=== PATIENT | female | born 1990 | race Caucasian/White ===

== ENCOUNTER 2018-03-26 18:16 | Emergency (ER) | payer SELFPAY ==
[~2018-03-26] VITALS: Ht 157.5 cm; Wt 45.5 kg
[2018-03-26 18:59] LABS: BASO % 0.5 % (0.0-2.0); EOS # 0.2 (0.0-0.7); EOS % 2.2 % (0-4.0); GRAN # 3.3 (1.4-6.5); GRAN % 43.1 % (42.2-75.2); HEMATOCRIT 43.4 % (37.0-47.0); HEMOGLOBIN 14.9 g/dl (12.5-16.0); LYMPH # 3.4 (1.2-3.4); LYMPH % 44.8 % (20.0-51.0); MEAN CELL VOLUME 98 fl (80.0-100.0); MEAN CORPUSCULAR HEMOGLOBIN 34 pg (27.0-31.0); MEAN CORPUSCULAR HGB CONC 34 g/dl (33.0-37.0); MEAN PLATELET VOLUME 10.2 fl (7.4-10.4); MONO # 0.7 (0.1-0.6); MONO % 9.1 % (1.7-9.3); PLATELET COUNT 243 K/mm3 (130-400); RED BLOOD COUNT 4.41 M/mm3 (4.10-5.30); REDCELL DISTRIBUTION WIDTH-CV 13.2 % (11.5-14.5)
[2018-03-26 19:10] LABS: ALANINE AMINOTRANSFERASE 20 U/L (9-52); ALBUMIN 5.2 gm/dL (3.5-5.0); ALKALINE PHOSPHATASE 44 U/L (50-136); ANION GAP 12 mmol/L (7-16); AST,SGOT 32 U/L (15-37); BILIRUBIN,TOTAL 0.5 mg/dL (0.0-1.0); BLOOD UREA NITROGEN 12 mg/dL (7-17); CALCIUM 9.4 mg/dL (8.4-10.2); CARBON DIOXIDE 22 mmol/L (22-30); CHLORIDE 111 mmol/L (98-107); CREATININE, serum 0.71 mg/dL (0.52-1.25); GLUCOSE 86 mg/dL (74-106); POTASSIUM 3.5 mmol/L (3.4-5.0); SODIUM 144 mmol/L (137-145); TOTAL PROTEIN 8.7 gm/dL (6.4-8.2)
[2018-03-26 19:21] LABS: C-REACTIVE PROTEIN < 0.5 mg/dL (0.0-0.9)
[2018-03-26 19:22] LABS: COLLECTION METHOD CLEAN CATCH
[2018-03-26 19:30] LABS: MUCOUS Present /lpf; PH 6 (5-8); SQUAMOUS EPITHELIAL 0-2 /hpf; URINE APPEARANCE Clear; URINE BACTERIA Rare /hpf; URINE BILIRUBIN Negative (NEGATIVE); URINE BLOOD Negative (NEGATIVE); URINE COLOR Yellow; URINE GLUCOSE Negative (NEGATIVE); URINE KETONE 1+ (NEGATIVE); URINE LEUKOCYTE ESTERASE Negative (NEGATIVE); URINE NITRATE Negative (NEGATIVE); URINE PROTEIN(semi-quant) Negative (NEGATIVE); URINE RBC 0-2 /hpf
[2018-03-26] MEDS ORDERED: GLEEVEC100 MG PO (19:58)
[2018-03-26] MEDS ORDERED: CORLANOR5 MG (19:58)
[2018-03-26] MEDS ORDERED: SAVELLA100 MG PO (19:59)
[2018-03-26] MEDS ORDERED: LYRICA 75MG CAP75 MG PO (19:59)
[2018-03-26] MEDS ORDERED: TOPAMAX50 MG PO (20:00)
[2018-03-26] MEDS ORDERED: ZYRTEC 10MG10 MG (20:00)
[2018-03-26] MEDS ORDERED: SINGULAIR 110 MG/TAB PO (20:00)
[2018-03-26] MEDS ORDERED: XOPENEX HF0.045 MG/A IH (20:01)
[2018-03-26] MEDS ORDERED: BENADRYL50 MG PO (20:01)
[2018-03-26] MEDS ORDERED: PREDNISONE10 MG PO (20:01)
[2018-03-26] MEDS ORDERED: COMPAZINE 110 MG/TAB PO (20:02)
[2018-03-26] MEDS ORDERED: XOPENEX 0.0.63 MG/3 IH (20:02)
[2018-03-26] MEDS ORDERED: ZOFRAN 4MG T4 MG/TAB PO (20:03)
[2018-03-26 20:05] VITALS: TEMP 97.4
[2018-03-26] MEDS ORDERED: ZOFRAN ODT4 MG PO (20:43)
[2018-03-26] MEDS ORDERED: LOMOTIL 0.025 M1 TAB PO (21:37)
[2018-03-26 21:47] VITALS: BP 105/78; PULSE 112
== END 2018-03-26 21:47 | disposition home or self-care (01) ==
LOC: COL.ER 18:16
PROVIDERS: Family Medicine
DX: E86.0 Dehydration (principal); R19.7 Diarrhea, unspecified
CPT/HCPCS: J2405; J7030

== ENCOUNTER → 2018-10-08 | Outpatient (CLI) | payer BC ==
[~2018-10-08] MED LIST: BENADRYL50 MG PO; COMPAZINE 110 MG/TAB PO; CORLANOR5 MG; GLEEVEC100 MG PO; LOMOTIL 0.025 M1 TAB PO; LYRICA 75MG CAP75 MG PO; PREDNISONE10 MG PO; SAVELLA100 MG PO; SINGULAIR 110 MG/TAB PO; TOPAMAX50 MG PO; XOPENEX 0.0.63 MG/3 IH; XOPENEX HF0.045 MG/A IH; ZOFRAN 4MG T4 MG/TAB PO; ZOFRAN ODT4 MG PO; ZYRTEC 10MG10 MG
== END ==
LOC: COL.RAD 09-28 07:30
DX: R51 Headache (principal)

== ENCOUNTER 2018-11-21 21:33 | Emergency (ER) | payer BC ==
[~2018-11-21] VITALS: Ht 157.5 cm; Wt 46.4 kg
[2018-11-21 21:36] VITALS: TEMP 99
[2018-11-21 22:32] LABS: HEMATOCRIT 40.4 % (37.0-47.0); HEMOGLOBIN 13.8 g/dl (12.5-16.0); MEAN CELL VOLUME 100 fl (80.0-100.0); MEAN CORPUSCULAR HEMOGLOBIN 34 pg (27.0-31.0); MEAN CORPUSCULAR HGB CONC 34 g/dl (33.0-37.0); MEAN PLATELET VOLUME 9.7 fl (7.4-10.4); PLATELET COUNT 256 K/mm3 (130-400); RED BLOOD COUNT 4.04 M/mm3 (4.10-5.30); REDCELL DISTRIBUTION WIDTH-CV 11.9 % (11.5-14.5)
[2018-11-21 22:44] LABS: ALANINE AMINOTRANSFERASE 18 U/L (9-52); ALBUMIN 4.5 gm/dL (3.5-5.0); ALKALINE PHOSPHATASE 47 U/L (50-136); ANION GAP 10 mmol/L (7-16); AST,SGOT 26 U/L (15-37); BILIRUBIN,TOTAL 0.2 mg/dL (0.0-1.0); BLOOD UREA NITROGEN 12 mg/dL (7-17); CALCIUM 9.6 mg/dL (8.4-10.2); CARBON DIOXIDE 28 mmol/L (22-30); CHLORIDE 105 mmol/L (98-107); CREATININE, serum 0.69 (0.52-1.25); GLUCOSE 80 mg/dL (74-106); POTASSIUM 4.2 mmol/L (3.4-5.0); SODIUM 143 mmol/L (137-145); TOTAL PROTEIN 7.5 gm/dL (6.4-8.2)
[2018-11-21 22:46] LABS: C-REACTIVE PROTEIN < 0.5 mg/dL (0.0-0.9)
[2018-11-21 22:59] LABS: COLLECTION METHOD CLEAN CATCH
[2018-11-21 23:00] LABS: MUCOUS Present /lpf; PH 6 (5-8); SQUAMOUS EPITHELIAL 0-2 /hpf; URINE APPEARANCE Clear; URINE BACTERIA None Seen /hpf; URINE BILIRUBIN Negative (NEGATIVE); URINE BLOOD Negative (NEGATIVE); URINE COLOR Straw; URINE GLUCOSE Negative (NEGATIVE); URINE KETONE Negative (NEGATIVE); URINE LEUKOCYTE ESTERASE Negative (NEGATIVE); URINE NITRATE Negative (NEGATIVE); URINE PROTEIN(semi-quant) Negative (NEGATIVE); URINE RBC 0-2 /hpf; URINE UROBILINOGEN Negative (NEGATIVE)
[2018-11-21] MEDS ORDERED: SAVELLA50 MG PO (23:18)
[2018-11-21] MEDS ORDERED: CORLANOR5 MG PO (23:21)
[2018-11-21] MEDS ORDERED: GLEEVEC100 MG PO (23:21)
[2018-11-21] MEDS ORDERED: COMPAZINE 110 MG/TAB PO (23:22)
[2018-11-21] MEDS ORDERED: ERGOCALCIFER50000 IU PO (23:23)
[2018-11-21] MEDS ORDERED: PROLIA60 MG/ML SQ (23:23)
[2018-11-21] MEDS ORDERED: EMGALITY120 MG/1 M SQ (23:23)
[2018-11-21] MEDS ORDERED: ADDERALL10 MG PO (23:24)
[2018-11-21] MEDS ORDERED: NUCYNTA100 MG PO (23:24)
[2018-11-21 23:26] LABS: BAND 8 % (0-10); EOSINOPHIL 1 % (0-4); LYMPHOCYTE 25 % (20.0-51.0); NEUTROPHILS 64 % (42.0-75.2); PLATELET ESTIMATE NORMAL (NORMAL)
[2018-11-22 01:47] VITALS: BP 110/73; PULSE 94
[2018-11-26 10:57] LABS: PARASITE EXAM BLOOD XXX
[2018-11-26 10:59] LABS: LEPTOSPIRAL ANTIBODIES XXX
[2018-11-27 01:48] LABS: DENGUE FEVER AB IGG XXX; DENGUE FEVER AB IGM XXX
== END 2018-11-22 01:47 | disposition home or self-care (01) ==
LOC: COL.ER 21:33
PROVIDERS: Emergency Medicine; Family Medicine
DX: R50.9 Fever, unspecified (principal); R53.81 Other malaise; R53.82 Chronic fatigue, unspecified
CPT/HCPCS: J7030

== ENCOUNTER 2019-02-04 19:56 | Emergency (ER) | payer BC ==
[~2019-02-04] VITALS: Ht 157.5 cm; Wt 47.7 kg
[~2019-02-04 19:56] MED LIST changes: +ADDERALL10 MG PO; +CORLANOR5 MG PO; +EMGALITY120 MG/1 M SQ; +ERGOCALCIFER50000 IU PO; +NUCYNTA100 MG PO; +PROLIA60 MG/ML SQ; +SAVELLA50 MG PO
[2019-02-04 19:59] VITALS: TEMP 98.8
[2019-02-04 20:36] LABS: BASO # 0.1 (0.0-0.2); BASO % 0.7 % (0.0-2.0); EOS # 0.2 (0.0-0.7); EOS % 3.1 % (0-4.0); GRAN # 2.4 (1.4-6.5); GRAN % 34.1 % (42.2-75.2); HEMATOCRIT 37.1 % (37.0-47.0); HEMOGLOBIN 12.3 g/dl (12.5-16.0); LYMPH # 3.9 (1.2-3.4); LYMPH % 54.5 % (20.0-51.0); MEAN CELL VOLUME 102 fl (80.0-100.0); MEAN CORPUSCULAR HEMOGLOBIN 34 pg (27.0-31.0); MEAN CORPUSCULAR HGB CONC 33 g/dl (33.0-37.0); MEAN PLATELET VOLUME 9.8 fl (7.4-10.4); MONO # 0.5 (0.1-0.6); MONO % 7.5 % (1.7-9.3); PLATELET COUNT 179 K/mm3 (130-400); RED BLOOD COUNT 3.63 M/mm3 (4.10-5.30); REDCELL DISTRIBUTION WIDTH-CV 12.3 % (11.5-14.5)
[2019-02-04 20:42] LABS: COLLECTION METHOD CLEAN CATCH
[2019-02-04 20:47] LABS: ALANINE AMINOTRANSFERASE 21 U/L (9-52); ALBUMIN 4.6 gm/dL (3.5-5.0); ALKALINE PHOSPHATASE 43 U/L (50-136); ANION GAP 11 mmol/L (7-16); AST,SGOT 32 U/L (15-37); BILIRUBIN,TOTAL 0.2 mg/dL (0.0-1.0); BLOOD UREA NITROGEN 13 mg/dL (7-17); CALCIUM 9.1 mg/dL (8.4-10.2); CARBON DIOXIDE 29 mmol/L (22-30); CHLORIDE 102 mmol/L (98-107); CREATINE KINASE 72 U/L (30-135); CREATININE, serum 0.59 (0.52-1.25); GLUCOSE 101 mg/dL (74-106); POTASSIUM 3.7 mmol/L (3.4-5.0); SODIUM 143 mmol/L (137-145); TOTAL PROTEIN 7.3 gm/dL (6.4-8.2)
[2019-02-04 20:48] LABS: C-REACTIVE PROTEIN < 0.5 mg/dL (0.0-0.9)
[2019-02-04 21:05] LABS: SQUAMOUS EPITHELIAL 0-2 /hpf; URINE BACTERIA None Seen /hpf; URINE RBC None Seen /hpf
[2019-02-04 21:07] LABS: ERYTHROCYTE SEDIMENTATION RATE 1 mm/hr (0-20)
[2019-02-04 21:20] LABS: MUCOUS Present /lpf; PH 7 (5-8); URINE APPEARANCE Cloudy; URINE BILIRUBIN Negative (NEGATIVE); URINE BLOOD Negative (NEGATIVE); URINE COLOR Amber; URINE GLUCOSE Negative (NEGATIVE); URINE KETONE Negative (NEGATIVE); URINE LEUKOCYTE ESTERASE Negative (NEGATIVE); URINE NITRATE Positive (NEGATIVE); URINE PROTEIN(semi-quant) Negative (NEGATIVE); URINE UROBILINOGEN >=4.0 mg/dL (NEGATIVE)
[2019-02-04] MEDS ORDERED: PREDNISONE20 MG PO (22:23)
[2019-02-04 22:56] VITALS: BP 117/82; PULSE 86
== END 2019-02-04 22:59 | disposition home or self-care (01) ==
LOC: COL.ER 19:56
PROVIDERS: Emergency Medicine
DX: M79.10 Myalgia, unspecified site (principal); D89.40 Mast cell activation, unspecified; Z90.710 Acquired absence of both cervix and uterus; Z90.49 Acquired absence of other specified parts of digestive tract
CPT/HCPCS: J2060; J2930; J7030

== ENCOUNTER 2019-07-19 22:06 | Emergency (ER) | payer BC ==
[~2019-07-19] VITALS: Ht 157.5 cm; Wt 53.6 kg
[~2019-07-19 22:06] MED LIST changes: +PREDNISONE20 MG PO
[2019-07-19] MEDS ORDERED: ZADITOR 5 ML5 ML (22:18)
[2019-07-19 22:41] LABS: BASO % 0.4 % (0.0-2.0); EOS # 0.2 (0.0-0.7); GRAN % 56.7 % (42.2-75.2); HEMATOCRIT 37.3 % (37.0-47.0); HEMOGLOBIN 12.6 g/dl (12.5-16.0); LYMPH # 3.1 (1.2-3.4); LYMPH % 29.6 % (20.0-51.0); MEAN CELL VOLUME 101 fl (80.0-100.0); MEAN CORPUSCULAR HEMOGLOBIN 34 pg (27.0-31.0); MEAN CORPUSCULAR HGB CONC 34 g/dl (33.0-37.0); MEAN PLATELET VOLUME 9.9 fl (7.4-10.4); MONO # 1.2 (0.1-0.6); PLATELET COUNT 223 K/mm3 (130-400); RED BLOOD COUNT 3.69 M/mm3 (4.10-5.30); REDCELL DISTRIBUTION WIDTH-CV 11.9 % (11.5-14.5)
[2019-07-19 22:52] LABS: ALANINE AMINOTRANSFERASE 29 U/L (9-52); ALBUMIN 4.6 gm/dL (3.5-5.0); ALKALINE PHOSPHATASE 47 U/L (50-136); ANION GAP 7 mmol/L (7-16); AST,SGOT 33 U/L (15-37); BILIRUBIN,TOTAL 0.4 mg/dL (0.0-1.0); BLOOD UREA NITROGEN 13 mg/dL (7-17); CALCIUM 8.9 mg/dL (8.4-10.2); CARBON DIOXIDE 30 mmol/L (22-30); CHLORIDE 103 mmol/L (98-107); CREATININE, serum 0.65 (0.52-1.25); GLUCOSE 105 mg/dL (74-106); POTASSIUM 3.8 mmol/L (3.4-5.0); SODIUM 141 mmol/L (137-145); TOTAL PROTEIN 7.4 gm/dL (6.4-8.2)
[2019-07-19 22:53] LABS: C-REACTIVE PROTEIN < 0.5 mg/dL (0.0-0.9)
[2019-07-19 23:01] LABS: TROPONIN-I < 0.012 ng/mL (0.000-0.035)
[2019-07-20 00:08] LABS: COLLECTION METHOD CLEAN CATCH
[2019-07-20 00:14] LABS: PH 6 (5-8); SQUAMOUS EPITHELIAL 0-2 /hpf; URINE APPEARANCE Clear; URINE BACTERIA None Seen /hpf; URINE BILIRUBIN Negative (NEGATIVE); URINE BLOOD Negative (NEGATIVE); URINE COLOR Amber; URINE GLUCOSE Negative (NEGATIVE); URINE KETONE Negative (NEGATIVE); URINE LEUKOCYTE ESTERASE Negative (NEGATIVE); URINE NITRATE Positive (NEGATIVE); URINE PROTEIN(semi-quant) Negative (NEGATIVE); URINE RBC 0-2 /hpf; URINE UROBILINOGEN >=4.0 mg/dL (NEGATIVE)
[2019-07-20 00:34] LABS: ARTERIAL BLD GAS O2 SATURATION 96.3 % (92-100); ARTERIAL BLD GAS TCO2 CT 23.7; ARTERIAL BLOOD GAS BASE EXCESS -1.9 (-2-2); ARTERIAL BLOOD GAS HCO3 22.6 meq/L (22-26); ARTERIAL BLOOD GAS PCO2 37.3 mmHg (35-45); ARTERIAL BLOOD GAS PO2 92.2 mmHg (80-100)
[2019-07-20 01:19] VITALS: BP 129/96; PULSE 98; TEMP 97.8
== END 2019-07-20 01:09 | disposition home or self-care (01) ==
LOC: COL.ER 22:06
PROVIDERS: Nurse Practitioner
DX: R07.89 Other chest pain (principal); R06.00 Dyspnea, unspecified; Z90.710 Acquired absence of both cervix and uterus
CPT/HCPCS: J7030